=== PATIENT | male | born 1960 | race Caucasian/White ===

== ENCOUNTER 2018-01-24 17:46 | Emergency (ER) | payer OTHER ==
[2018-01-24] MEDS ORDERED: Sodium Chloride 0.9% 10 ML Syringe FLUSH PRN (17:50)
[2018-01-24] MEDS ORDERED: Sodium Chloride 0.9% 2.5 ML Syringe FLUSH PRN (17:50)
--- NOTE | 2018-01-24 18:16 | EDM.PDOC ---
ED HPI GENERAL MEDICAL PROBLEM - General Chief Complaint: Neuro Symptoms/Deficits Stated Complaint: POSSIBLE STROKE Time Seen by Provider: 01/24/18 17:50 Source of Information: Reports: Patient History Limitations: Reports: No Limitations - History of Present Illness INITIAL COMMENTS - FREE TEXT/NARRATIVE: History of present illness: []Patient started having a headache at 3 in the morning and was unable to see out of his right eye with weakness in his right upper extremity. Patient went back to bed. He tried to sleep more today with the same symptoms. Patient complains of a mild headache now, He denies any chest pain, nausea, vomiting or recent illnesses. Review of systems: As per history of present illness and below otherwise all systems reviewed and negative. Past medical history: As per history of present illness and as reviewed below otherwise noncontributory. Surgical history: As per history of present illness and as reviewed below otherwise noncontributory. Social history: No reported history of drug or alcohol abuse. Family history: As per history of present illness and as reviewed below otherwise noncontributory. Physical exam: General: Well developed, well nourished in NAD HEENT: Atraumatic, normocephalic, EOMI, PERRL negative for conjunctival pallor or scleral icterus, mucous membranes moist, throat clear, neck supple, nontender , trachea midline. Lungs: Clear to auscultation, breath sounds equal bilaterally, chest nontender. Heart: S1S2, regular, negative for clicks, rubs, or JVD. Abdomen: Soft, nondistended, nontender. Negative for masses or hepatosplenomegaly. Negative for costovertebral tenderness. Pelvis: Stable nontender. Genitourinary: Deferred. Rectal: Deferred. Extremities: Atraumatic, negative for cords or calf pain. Neurovascular unremarkable. Neuro: Awake, alert, oriented. Right facial droop noted. 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 Foci of diminished attenuation within the subcortical white matter of the left parietal lobe. This could represent a region of ischemia. MRI with diffusion-weighted imaging is suggested. 2. No acute intracranial hemorrhage or shift of midline structures. 3. Vessels of the [place] appear diffusely hyperdense. There is, however, no hyperdense MCA sign. 4. Bones of the skull base and calvaria are intact. Labs ordered CBC 12.4, H/H 17/, INR is 1.03, glucose 98, EKG sinus bradycardia Therapeutics: []Patient did not meet TPA criteria due to time, morphine and Zofran given for headache Impression: []CVA Plan: []Transfer to [facility] for MRI and evaluation by neurology which is not available at this time here. Definitive disposition and diagnosis as appropriate pending reevaluation and review of above. - Related Data Allergies Allergy/AdvReac Type Severity Reaction Status Date / Time No Known Allergies Allergy Verified 07/17/16 10:00 Home Meds: Home Meds Blood Pressure Medication 01/24/18 [History] Past Medical History Other HEENT History: wears glasses, has upper partial denture Cardiovascular History: Reports: None, Hypertension Respiratory History: Reports: COPD Gastrointestinal History: Reports: Other (See Below) Genitourinary History: Reports: None Musculoskeletal History: Reports: None Neurological History: Reports: Concussion Psychiatric History: Reports: None Endocrine/Metabolic History: Reports: Diabetes, Type II, Obesity/BMI 30+ Hematologic History: Reports: None Immunologic History: Reports: None Oncologic (Cancer) History: Reports: None Dermatologic History: Reports: None - Past Surgical History GI Surgical History: Reports: Colonoscopy, Hernia, Abdominal Social & Family History - Tobacco Use Smoking Status *Q: Current Every Day Smoker Years of Tobacco use: 40 Packs/Tins Daily: 2 - Alcohol Use Days Per Week of Alcohol Use: 0 Number of Drinks Per Day: 0 Total Drinks Per Week: 0 - Recreational Drug Use Recreational Drug Use: No Drug Use in Last 12 Months: No ED ROS GENERAL - Review of Systems Review Of Systems: See Below (See history of present illness) ED EXAM, NEURO - Physical Exam Exam: See Below (See history of present illness) Course - Vital Signs Last Recorded V/S: Last Vital Signs Temp Pulse Resp BP Pulse Ox 97 01/24/18 18:46 - Orders/Labs/Meds Orders: Active Orders 24 hr Category Date Time Status Assess Neurological Status [RC] ASDIRECTED Care 01/24/18 17:50 Active Bedrest [RC] ASDIRECTED Care 01/24/18 17:50 Active Blood Glucose Check, Bedside [RC] STAT Care 01/24/18 17:50 Active Cardiac Monitoring [RC] . DIRECTED Care 01/24/18 17:50 Active EKG Documentation Completion [RC] STAT Care 01/24/18 17:50 Active Height and Weight [RC] UPON Care 01/24/18 17:50 Active Initiate Acute Stroke Protocol [RC] STAT Care 01/24/18 17:50 Active NIH Stroke Scale [RC] ASDIRECTED Care 01/24/18 17:50 Active Nursing Bedside Swallow Screen [RC] ASDIRECTED Care 01/24/18 17:50 Active Oxygen Therapy [RC] ASDIRECTED Care 01/24/18 17:50 Active Stroke Education, General [RC] Click to Edit Care 01/24/18 17:50 Active Vital Signs [RC] Q15M Care 01/24/18 17:50 Active Head wo Cont [CT] Stat Exams 01/24/18 17:50 Taken Sodium Chloride 0.9% [Saline Flush] Med 01/24/18 17:50 Active 10 ml FLUSH ASDIRECTED PRN Sodium Chloride 0.9% [Saline Flush] Med 01/24/18 17:50 Active 2.5 ml FLUSH ASDIRECTED PRN Peripheral IV Insertion Adult [OM.PC] Stat Oth 01/24/18 17:50 Ordered Peripheral IV Insertion Adult [OM.PC] Stat Oth 01/24/18 17:50 Ordered Medication Orders Sodium Chloride (Saline Flush) 10 ml FLUSH ASDIRECTED PRN PRN Reason: Keep Vein Open Sodium Chloride (Saline Flush) 2.5 ml FLUSH ASDIRECTED PRN PRN Reason: Keep Vein Open Labs: Laboratory Tests 01/24/18 01/24/18 01/24/18 Range/Units 17:50 17:50 17:50 WBC 12.46 H (4.0-11.0) K/uL RBC 5.98 H (4.50-5.90) M/uL Hgb 17.9 H (13.0-17.0) g/dL Hct 52.5 H (38.0-50.0) % MCV 87.8 (80.0-98.0) fL MCH 29.9 (27.0-32.0) pg MCHC 34.1 (31.0-37.0) g/dL RDW Std Deviation 46.1 (28.0-62.0) fl RDW Coeff of Jamilah 14 (11.0-15.0) % Plt Count 188 (150-400) K/uL MPV 11.30 (7.40-12.00) fL Neut % (Auto) 64.6 (48.0-80.0) % Lymph % (Auto) 29.5 (16.0-40.0) % [place] % (Auto) 5.1 (0.0-15.0) % Eos % (Auto) 0.6 (0.0-7.0) % Baso % (Auto) 0.2 (0.0-1.5) % Neut # (Auto) 8.1 H (1.4-5.7) K/uL Lymph # (Auto) 3.7 H (0.6-2.4) K/uL [place] # (Auto) 0.6 (0.0-0.8) K/uL Eos # (Auto) 0.1 (0.0-0.7) K/uL Baso # (Auto) 0.0 (0.0-0.1) K/uL Nucleated RBC % 0.0 /100WBC Nucleated RBCs # 0 K/uL INR 1.03 APTT 28.9 (18.6-31.3) SEC Sodium 142 (136-148) mmol/L Potassium 3.9 (3.5-5.1) mmol/L Chloride 108 H (98-107) mmol/L Carbon Dioxide 23.3 (21.0-32.0) mmol/L BUN 12 (7.0-18.0) mg/dL Creatinine 1.0 (0.8-1.3) mg/dL Est Cr Clr Drug Dosing TNP Estimated GFR (MDRD) > 60.0 ml/min Glucose 99 (74-106) mg/dL Calcium 8.6 (8.5-10.1) mg/dL Total Bilirubin 1.1 H (0.2-1.0) mg/dL AST 21 (15-37) IU/L ALT 34 (14-63) IU/L Alkaline Phosphatase 100 (46-116) U/L Troponin I < 0.050 (0.000-0.056) ng/mL Total Protein 7.1 (6.4-8.2) g/dL Albumin 3.6 (3.4-5.0) g/dL Globulin 3.5 (2.0-3.5) g/dL Albumin/Globulin Ratio 1.0 L (1.3-2.8) TSH 3rd Generation 1.00 (0.36-3.74) uIU/mL Meds: Medications Generic Name Dose Route Start Last Admin Trade Name Freq PRN Reason Stop Dose Admin Sodium Chloride 10 ml 01/24/18 17:50 Saline Flush FLUSH ASDIRECTED PRN Keep Vein Open Sodium Chloride 2.5 ml 01/24/18 17:50 Saline Flush FLUSH ASDIRECTED PRN Keep Vein Open Discontinued Medications Generic Name Dose Route Start Last Admin Trade Name Freq PRN Reason Stop Dose Admin Morphine Sulfate 2 mg 01/24/18 18:46 Morphine IVPUSH 01/24/18 18:47 ONETIME ONE Ondansetron HCl 4 mg 01/24/18 18:46 Zofran IVPUSH 01/24/18 18:47 ONETIME ONE Departure - Departure Time of Disposition: 18:48 Disposition: DC/Tfer to Acute Hospital 02 Condition: Fair Clinical Impression: Acute ischemic stroke - Discharge Information Referrals: Pedro Hernandez MD [Primary Care Provider] - Forms: ED Department Discharge - My Orders Last 24 Hours: My Active Orders 01/24/18 17:50 Assess Neurological Status [RC] ASDIRECTED Bedrest [RC] ASDIRECTED Blood Glucose Check, Bedside [RC] STAT Cardiac Monitoring [RC] . DIRECTED EKG Documentation Completion [RC] STAT Height and Weight [RC] UPON Initiate Acute Stroke Protocol [RC] STAT NIH Stroke Scale [RC] ASDIRECTED Nursing Bedside Swallow Screen [RC] ASDIRECTED Oxygen Therapy [RC] ASDIRECTED Stroke Education, General [RC] Click to Edit Vital Signs [RC] Q15M Head wo Cont [CT] Stat Sodium Chloride 0.9% [Saline Flush] 10 ml FLUSH ASDIRECTED PRN Sodium Chloride 0.9% [Saline Flush] 2.5 ml FLUSH ASDIRECTED PRN Peripheral IV Insertion Adult [OM.PC] Stat Peripheral IV Insertion Adult [OM.PC] Stat - Assessment/Plan Last 24 Hours: My Active Orders 01/24/18 17:50 Assess Neurological Status [RC] ASDIRECTED Bedrest [RC] ASDIRECTED Blood Glucose Check, Bedside [RC] STAT Cardiac Monitoring [RC] . DIRECTED EKG Documentation Completion [RC] STAT Height and Weight [RC] UPON Initiate Acute Stroke Protocol [RC] STAT NIH Stroke Scale [RC] ASDIRECTED Nursing Bedside Swallow Screen [RC] ASDIRECTED Oxygen Therapy [RC] ASDIRECTED Stroke Education, General [RC] Click to Edit Vital Signs [RC] Q15M Head wo Cont [CT] Stat Sodium Chloride 0.9% [Saline Flush] 10 ml FLUSH ASDIRECTED PRN Sodium Chloride 0.9% [Saline Flush] 2.5 ml FLUSH ASDIRECTED PRN Peripheral IV Insertion Adult [OM.PC] Stat Peripheral IV Insertion Adult [OM.PC] Stat
[2018-01-24 18:27] LABS: CHLORIDE,CL 108 mmol/L (98-107); SODIUM,NA 142 mmol/L (136-148)
[2018-01-24] MEDS ORDERED: Ondansetron 4 MG/2 ML SDV IVPUSH ONE (18:46)
[2018-01-24] MEDS ORDERED: Morphine 2 MG/ML Syringe IVPUSH ONE (18:46)
[2018-01-24 19:19] VITALS: BP 139/88
--- NOTE | 2018-01-26 14:31 | CT ---
EXAM DATE: 01/24/18 PATIENT'S AGE: 57 Patient: SHAAN ARNOLD Facility: [place], [place] Site . Site : [id number] Study: CT Head STROKE PROTOCOL WO CONT [id number]/10/2018 6:03:31 PM Ordering Physician: Pako Gregory Final Report: INDICATION: STROKE CODE, RIGHT SIDED VISION LOSS SINCE 0330 HRS THIS MORNING HISTORY: Vision loss since this morning. COMPARISON: None. TECHNIQUE: CT of the brain. No intravenous contrast. Coronal/sagittal reconstruction images. FINDINGS: The vessels of the [place] are diffusely hyperdense. There is no acute intracranial hemorrhage. No shift of midline structures. No mass effect. No hyperdense MCA sign. Basilar cisterns are patent. There are no abnormal extra- axial fluid collections. There is a region of reduced density within the left parietal lobe, which is seen on series 201, image 42. This could represent a region of ischemia. There are no abnormal extra-axial fluid collections. No ventriculomegaly. The mastoid air cells of both temporal bones are clear. Pterygoid plates are intact. The bones of the skullbase and calvaria are intact. IMPRESSION: 1. Foci of diminished attenuation within the subcortical white matter of the left parietal lobe. This could represent a region of ischemia. MRI with diffusion-weighted imaging is suggested. 2. No acute intracranial hemorrhage or shift of midline structures. 3. Vessels of the [place] appear diffusely hyperdense. There is, however, no hyperdense MCA sign. 4. Bones of the skull base and calvaria are intact. 5. Report called to Dr. Adam, emergency department, 01/24/2018, 1815 hours. Dictated by Caleb Fried MD @ 01/24/2018 6:15:56 PM Dictated by: Caleb Fried MD @ 01/24/2018 18:16:13 (Electronic Signature) Report Signed by Proxy. [facility] HOSPITALMelissa
== END 2018-01-24 19:10 ==
LOC: MW.ED 17:46
DX: I63.9 Cerebral infarction, unspecified (principal); I10 Essential (primary) hypertension; J44.9 Chronic obstructive pulmonary disease, unspecified; E11.9 Type 2 diabetes mellitus without complications; E66.9 Obesity, unspecified; F17.210 Nicotine dependence, cigarettes, uncomplicated
CPT/HCPCS: 36415; 70450; 80053; 84443; 84484; 85025; 85610; 85730; 93005; 96374; 96375; 99285; J2270; J2405; 99284

== ENCOUNTER 2020-08-03 06:53 | Day surgery (SDC) | payer OTHER ==
[~2020-08-03 06:53] MED LIST: Lactated Ringers 1,000 ML IV SCH
[2020-08-03] MEDS ORDERED: Propofol 200 MG/20 ML SDV ONE ×2 (07:12→08:12)
[2020-08-03] MEDS ORDERED: Midazolam 1 MG/ML 2 ML SDV ONE (07:12)
[2020-08-03] MEDS ORDERED: fentaNYL 100 MCG/2 ML SDV ONE (07:13)
--- NOTE | 2020-08-03 07:32 | PCM.PREANE ---
Preanesthetic Assessment - Anesthesia/Transfusion/Family Hx Anesthesia History: Prior Anesthesia Without Reaction Other Type of Anesthesia Reaction Comment: DENIES ANY PROBLEMS WITH ANESTHESIA Family History of Anesthesia Reaction: No Transfusion History: No Prior Transfusion(s) Intubation History: Unknown - Review of Systems General: No Symptoms Pulmonary: No Symptoms Cardiovascular: No Symptoms Gastrointestinal: No Symptoms, Other (3 year follow up) Neurological: No Symptoms Other: Reports: None - Physical Assessment Height: 6 ft 2 in Weight: 111.13 kg ASA Class: 3 Mental Status: Alert & Oriented x3 Airway Class: Mallampati = 2 Dentition: Reports: Edentulous (upper), Broken Tooth/Teeth (couple of very loose teeth in lower jaw, one front and one way to the right) Thyro-Mental Finger Breadths: 3 Mouth Opening Finger Breadths: 3 ROM/Head Extension: Limited/Partial Lungs: Clear to Auscultation, Normal Respiratory Effort Cardiovascular: Regular Rate, Regular Rhythm Other: right arm and leg motor weakness - Allergies Allergies/Adverse Reactions: Allergies Allergy/AdvReac Type Severity Reaction Status Date / Time No Known Allergies Allergy Verified 07/28/20 09:50 - Blood Blood Available: No - Anesthesia Plan Pre-Op Medication Ordered: None - Acknowledgements Anesthesia Type Planned: MAC Pt an Appropriate Candidate for the Planned Anesthesia: Yes Alternatives and Risks of Anesthesia Discussed w Pt/Guardian: Yes Pt/Guardian Understands and Agrees with Anesthesia Plan: Yes PreAnesthesia Questionnaire HEENT History: Reports: Glaucoma, Hard of Hearing, Impaired Vision Other HEENT History: wears glasses, has upper denture and víctor hearing aids (states will not wear his denture or hearing aids) Cardiovascular History: Reports: High Cholesterol, Hypertension Respiratory History: Reports: COPD Other Respiratory History: states he currently has no prescribed inhaler and has had no respiratory problems Gastrointestinal History: Reports: Colon Polyp Genitourinary History: Reports: None Musculoskeletal History: Reports: None Neurological History: Reports: Concussion, CVA Other Neuro History: CVA 2 years and 8 months ago, has "some"right sided weakness, uses a cane on occasion Psychiatric History: Reports: None Endocrine/Metabolic History: Reports: Diabetes, Type II, Obesity/BMI 30+, Other (See Below) Other Endocrine/Metabolic History: Reports diabetes has resolved itself after weight loss and diet change Hematologic History: Reports: Anticoagulation Therapy, Polycythemia Immunologic History: Reports: None Oncologic (Cancer) History: Reports: None Dermatologic History: Reports: None - Past Surgical History Head Surgeries/Procedures: Reports: None HEENT Surgical History: Reports: None Cardiovascular Surgical History: Reports: None Respiratory Surgical History: Reports: None GI Surgical History: Reports: Colonoscopy (x2, '14 (polyps), '16 - normal), Hernia, Abdominal Other GI Surgeries/Procedures: umbilical hernia x2 Male Surgical History: Reports: None Endocrine Surgical History: Reports: None Neurological Surgical History: Reports: None Musculoskeletal Surgical History: Reports: None Oncologic Surgical History: Reports: None Dermatological Surgical History: Reports: None - SUBSTANCE USE Smoking Status *Q: Current Every Day Smoker Tobacco Use Within Last Twelve Months: Cigarettes - HOME MEDS Home Medications: Home Meds Latanoprost 1 drop EYEBOTH BEDTIME 07/28/20 [History] Warfarin Sodium 5 mg PO DAILY 07/28/20 [History] atorvaSTATin Calcium [Atorvastatin Calcium] 20 mg PO DAILY 07/28/20 [History] lisinopriL [Lisinopril] 20 mg PO DAILY 07/28/20 [History] - CURRENT (IN HOUSE) MEDS Current Meds: Current Medications Lactated Ringer's (Ringers, Lactated) 1,000 mls @ 125 mls/hr IV ASDIRECTED SHOSHANA Discontinued Medications Fentanyl (Sublimaze) Confirm Administered Dose 100 mcg .ROUTE .STK-MED ONE Stop: 08/03/20 07:14 Lidocaine HCl (Xylocaine-Mpf 1%) Confirm Administered Dose 5 ml .ROUTE .STK-MED ONE Stop: 08/03/20 07:14 Midazolam HCl (Versed 1 Mg/Ml) Confirm Administered Dose 2 mg .ROUTE .STK-MED ONE Stop: 08/03/20 07:13 Propofol (Diprivan 20 Ml) Confirm Administered Dose 400 mg .ROUTE .STK-MED ONE Stop: 08/03/20 07:13
--- NOTE | 2020-08-03 08:48 | PCM.OPNOTE ---
- General Post-Op/Procedure Note Date of Surgery/Procedure: 08/03/20 Operative Procedure(s): Colonoscopy and polypectomy Findings: colon polyps dictation # [id number] Pre Op Diagnosis: History of colon polyps Post-Op Diagnosis: multiple colon polyps Anesthesia Technique: Moderate Sedation Primary Surgeon: Chai Mead Pathology: multiple polyps Complications: None Condition: Good
--- NOTE | 2020-08-03 08:52 | PCM.POSTAN ---
POST ANESTHESIA ASSESSMENT - MENTAL STATUS Mental Status: Alert, Oriented - VITAL SIGNS Vital Signs: Last Vital Signs Temp 36.5 C 08/03/20 07:35 Pulse 84 08/03/20 07:35 Resp 18 08/03/20 07:35 BP 155/93 H 08/03/20 07:35 Pulse Ox 95 08/03/20 07:35 - RESPIRATORY Respiratory Status: Respiratory Rate WNL, Airway Patent, O2 Saturation Stable - CARDIOVASCULAR CV Status: Pulse Rate WNL, Blood Pressure Stable - GASTROINTESTINAL GI Status: No Symptoms - PAIN Pain Score: 0 - POST OP HYDRATION Hydration Status: Adequate & Stable - OBSERVATIONS Free Text/Narrative:: No anesthesia problems
[2020-08-03 09:12] VITALS: BP 135/83; PULSE 54
--- NOTE | 2020-08-03 09:38 | PCM48HPAN ---
Post Anesthesia Note - EVALUATION WITHIN 48HRS OF ANESTHETIC Vital Signs in Normal Range: Yes Patient Participated in Evaluation: Yes Respiratory Function Stable: Yes Airway Patent: Yes Cardiovascular Function Stable: Yes Hydration Status Stable: Yes Pain Control Satisfactory: Yes Nausea and Vomiting Control Satisfactory: Yes Mental Status Recovered: Yes Vital Signs: Last Vital Signs Temp 36.5 C 08/03/20 07:35 Pulse 54 L 08/03/20 08:57 Resp 14 08/03/20 08:57 BP 135/83 08/03/20 08:57 Pulse Ox 96 08/03/20 08:57 - COMMENTS/OBSERVATIONS Free Text/Narrative:: No anesthesia problems
--- NOTE | 2020-08-04 08:56 | OR ---
SURGEON: MARVEL BANEGAS MD DATE OF PROCEDURE: 08/03/2020 PREOPERATIVE DIAGNOSIS: History of colon polyps. POSTOPERATIVE DIAGNOSIS: Multiple colon polyps. PROCEDURE PERFORMED: 1. Colonoscopy. 2. Hot snare polypectomy. 3. Cold biopsy polypectomy. FINDINGS: 1. Colon polyp at approximately the splenic flexure. 2. Multiple hyperplastic polyps in the rectal vault at about 10 cm. 3. Polyp at about 5 cm. PRIMARY SURGEON: Marvel Banegas MD. ANESTHESIA: General. BOWEL PREP: Very good. WITHDRAWAL TIME: 25 minutes. LIMITATIONS: None. REASON FOR PROCEDURE: The patient is a pleasant 60-year-old gentleman whose last colonoscopy was in 2016. This was normal per patient, although he was told to have another in 4 years, because of a history of multiple colon polyps on his previous colonoscopy in 2013. He denies any blood in stool. He denies any family history of colon cancer. A detailed physical examination was performed. Risks and benefits associated with the procedure were explained in detail, the patient verbalized understanding of the same. The patient was then connected to appropriate monitoring devices and placed an IV, and started EKG, pulse oximetry, blood pressure, capnography, and monitoring throughout the procedure. Continuous oxygen and sedation were provided by anesthesiologist. The patient was placed in left lateral decubitus position. Sedation was began. After adequate sedation was achieved, digital rectal exam was performed. No rectal mass or polyps felt. Now, a well-lubricated Olympus colonoscope was entered in the rectum and advanced under direct visualization to the level of the cecum. Cecum was identified by both visual and anatomic landmarks. Terminal ileum was also intubated. Scope was then slowly withdrawn and showed normal color, texture, anatomy, and integrity of the mucosa from the cecum to the anal canal. The patient did have some light liquid stool, which was suctioned and irrigated out with excellent look at the mucosa. At right around what appeared to be the splenic flexure, the patient did have a polyp. This was removed with a hot snare polypectomy. There was good hemostasis. The scope was continued to be withdrawn. The patient did have a somewhat long descending colon. At about 10 cm, at the beginning of rectal vault, the patient did have what appeared to be multiple smaller hyperplastic polyps. These were removed with a combination of hot snare polypectomy and a couple of cold biopsy polypectomies. There was good hemostasis. Right at about 5 cm, there was a polyp that was removed with hot snare polypectomy. This was sent in a separate container. Scope was retroflexed in the rectum. Scope was then completely removed, and the procedure was terminated. ENDOSCOPIC DIAGNOSES: Multiple polyps; one in splenic flexure, multiple hyperplastic at about 10 cm, and a polyp at 5 cm. RECOMMENDATIONS: Followup colonoscopy will depend on the pathology, but most likely will need another one in 5 years, sooner if he develops signs or symptoms, such as change in bowel habits or blood in stool. MARCELINO / DRAKE /[id number]
== END 2020-08-03 09:35 | disposition home or self-care (01) ==
LOC: MW.SDS 06:53
PROVIDERS: ATTEND Surgery
DX: Z12.11 Encounter for screening for malignant neoplasm of colon (principal); Z12.12 Encounter for screening for malignant neoplasm of rectum; D12.3 Benign neoplasm of transverse colon; D12.8 Benign neoplasm of rectum; E78.00 Pure hypercholesterolemia, unspecified; I10 Essential (primary) hypertension; J44.9 Chronic obstructive pulmonary disease, unspecified; E11.9 Type 2 diabetes mellitus without complications; E66.9 Obesity, unspecified; F17.210 Nicotine dependence, cigarettes, uncomplicated; Z79.899 Other long term (current) drug therapy; Z86.010 Personal history of colon polyps; Z98.890 Other specified postprocedural states; Z68.30 Body mass index [BMI] 30.0-30.9, adult
CPT/HCPCS: 45380; 45385; J2001; J2250; J2704; J3010; J7120; 00812; 88305